=== PATIENT | male | born 1960 | race Caucasian/White ===

== ENCOUNTER 2017-07-19 22:07 | Inpatient (IN) | payer OTHER ==
[~2017-07-19] VITALS: Ht 185.4 cm; Wt 88.4 kg
--- NOTE | 2017-07-19 22:20 | ED.REPORT ---
HPI-Chest Pain 40 and Over Date of Service Jul 19, 2017 ED Provider: Jarad Espinal MD The pt is a 57 y/o male with a hx of [place] x2 (with six stents) and asthma who presents to the ED via EMS complaining of "6/10" left sided chest pain that radiates to his back, onset prior to arrival. He received 2 nitro and 32mg ASA en route and another nitro on arrival. His BP en route was 70/40. He reports tunneled vision prior to the onset of chest pain. Nursing Notes Stated Complaint: HYPOTENSIVE, CHEST PAIN Chief Complaint: Chest Pain Nursing Notes Reviewed: Yes Allergies: Coded Allergies: simvastatin (Verified Allergy, Severe, autoimmune disorder, 07/19/17) cefotetan (Verified Allergy, Mild, rash, hives, 07/19/17) General Time Seen by MD: 22:18 Chief Complaint Chest pain Hx Obtained From: Patient Arrived By: Ambulance Sudden in Onset?: Yes Onset Occurred: Just prior to arrival Symptom Duration: Since onset Location: : Chest left Quality: Painful Radiation: : Back Severity: Current: Pain level 6 out of 10 Severity: Maximum: Severe Recent Healthcare: No recent doctor visit Past Medical History Past Medical History [place] x2 (6 stents) Reports: Asthma Past Surgical History stent placement Smoking History Smoker Current Status UNK, Unknown if Ever Smoker Ambulatory Status Independent Review of Systems Cardiovascular: Reports: Chest pain Musculoskeletal: Reports: Back pain Neurologic: Reports: Vision change Complete sys rev & neg: except as marked. Physical Exam Initial Vital Signs Vital Signs (First) Date Time Temp Pulse Resp B/P Pulse Ox O2 Delivery O2 Flow Rate FiO2 07/19/17 22:30 36.6 69 18 114/80 100 Room Air Initial VS: Reviewed, Vital signs normal Head / Eyes: Atraumatic, Normocephalic Extremities: Vascular intact, Neuro intact, No swelling, No tenderness Skin: Warm, Dry, No cyanosis Neurologic: Alert, Oriented, Nonfocal General/Constitutional: Awake, Alert, Cooperative Distress / Hydration: Positive: Distress mild Respiratory / Chest: Atraumatic, Breath sounds NL, Breath sounds = bilat, No respiratory distress, No rales, No rhonchi, No wheezing Cardiovascular: Heart rate NL, Regular rhythm, Heart sounds NL, No gallop, No murmurs, No rubs Trace bilateral ankle edema Abdomen: Atraumatic, Soft, Non-tender, No guarding, No rebound Neck: Atraumatic, Supple, Full range of motion, No JVD Interpretation & Diagnostics CT angio abd and chest No aortic aneurysm or dissection. Scattered calcified atherosclerosis including 3 vessel coronary artery disease. Signed by Dr. Chasity Gant 07/20/17 00:21 Lab Results Interpretation Result Diagram: 07/19/17 1027 07/19/17 1027 Test 07/19/17 10:27 07/20/17 04:36 White Blood Count 7.0th/mm3 (3.8-10.1) Red Blood Count 4.32mil/mm3 (4.40-5.80) Hemoglobin 13.9g/dL (13.8-17.2) Hematocrit 40.1% (41.0-50.0) Mean Corpuscular Volume 92.8fL (81-100) Mean Corpuscular Hemoglobin 32.2pg (27.0-35.0) Mean Corpuscular Hemoglobin Concent 34.7% (32.0-37.0) Red Cell Distribution Width 12.6% (12.3-15.4) Platelet Count 229bil/L (150-400) Neutrophils (%) (Auto) 61.0% (40-74) Lymphocytes (%) (Auto) 21.7% (14-46) Monocytes (%) (Auto) 13.7% (4-12) Eosinophils (%) (Auto) 3.0% (0-5) Basophils (%) (Auto) 0.3% (0-3) Sodium Level 133mEq/L (134-144) Potassium Level 3.9mEq/L (3.5-5.2) Chloride Level 94mEq/L (97-108) Carbon Dioxide Level 24mmol/L (18-29) Blood Urea Nitrogen 22mg/dL (6-24) Creatinine 0.93mg/dL (0.76-1.27) Estimat Glomerular Filtration Rate 89mL/min (>59) Glucose Level 102mg/dL (60-99) Calcium Level 8.4mg/dL (8.5-10.1) Magnesium Level 1.8mg/dL (1.6-2.6) Total Bilirubin 0.2mg/dL (0.0-1.2) Aspartate Amino Transf (AST/SGOT) 15U/L (0-50) Alanine Aminotransferase (ALT/SGPT) 10U/L (0-44) Alkaline Phosphatase 54U/L (25-150) Total Protein 6.2g/dL (6.4-8.4) Albumin 4.0g/dL (3.4-5.0) Hold Pacheco Top Tube Received (Received) ECG Interpretation ECG Interpretation: Normal sinus rhythm. Rate 71. Time: 22:22 Interpreted by: ED physician Normal ECG Interpretation: Normal ECG w/ rate of... (71), Normal rate, Normal sinus rhythm ECG Interpretation: Normal sinus rhythm. Rate 57. Low voltage, extremity leads Time: 03:58 Interpreted by: ED physician X-Ray Chest Interpretation Chest Xray Interpretation: No acute findings View: Portable Interpretation / Wet Read by: Wet read ED physician Re-Eval/Medical Decision Med Decision/Clinical Course 57-year-old male with a history of coronary artery disease and previous stent placement presents with chest pain. He was treated at home with nitroglycerin. He had a fairly significant hypotensive response. He had taken Viagra earlier yesterday morning. He was hydrated by the paramedics and then the nitroglycerin was repeated with the same hypotensive effect. His troponin and EKG were negative 2 here. He still had intermittent chest pain, relieved with morphine but then it would come back. Because of the chest pain with radiation to the back and the hypotension CT angiogram of the chest and abdomen was performed which was negative for any evidence of great vessel disease. It did show calcification of the coronary arteries and gallstones. He will be admitted to the hospitalist service for troponin trending and further management of his pain. Source of Hx: Old records Time of Eval: 00:34 Patient Status: Condition improved Re-Evaluation/Progress Note: Rechecked pt. Discussed lab results, imaging results, diagnosis and plan to do a repeat troponin. Pt understands and agrees with the plan. All questions addressed. Time of Eval: 01:27 Re-Evaluation/Progress Note: Repeat troponin is negative. Time of Eval: 03:46 Re-Evaluation/Progress Note: Rechecked pt. Discussed lab results, imaging results,diagnosis and plan to admit. Pt understands and agrees with the plan for admission. All questions addressed. Consultation : Referral / Consult Name: Yvan Taylor MD Consulted With: Hospitalist Call Returned at: 04:19 Steam Distribution Supervisor: Will see patient, Agrees with eval, Agrees with plan, Accepts admit Counseled Regarding: Diagnosis, Lab results, Need for admission Discharge & Departure Primary Impression: Chest pain Chest pain type: unspecified Qualified Code: R07.9 - Chest pain, unspecified Disposition: ADMITTED TO HOSPITAL Referrals: OTHER,PHYSICIAN Scribe Attestation Portions of this note were transcribed by Elly Shah. I,, personally performed the history,physical exam and medical decision-making;I reviewed and confirmed the accuracy of the information in the transcribed note. Signed by Skyla Elena. 07/19/17 Jarad Espinal MD Jul 19, 2017 22:20 Elly Shah Jul 19, 2017 22:27
[2017-07-19 22:30] VITALS: BP 114/80; PULSE 69; RESP 18; O2SAT 100
[2017-07-19 22:54] LABS: BASOPHILS % (AUTO) 0.3 % (0-3); MONOCYTES % (AUTO) 13.7 % (4-12); Mean Corpuscular Hemoglobin 32.2 pg (27.0-35.0); Mean Corpuscular Volume 92.8 fL (81-100); Platelet Count 229 bil/L (150-400)
[2017-07-19 22:59] VITALS: BP 117/71; PULSE 71; RESP 13; O2SAT 98
[2017-07-19 23:26] LABS: Magnesium 1.8 mg/dL (1.6-2.6); TROPONIN T 0.01 ug/L (0.0-0.011)
[2017-07-19 23:41] VITALS: BP 119/71; PULSE 72; RESP 15; O2SAT 84
[2017-07-20] VITALS (8 sets, daily range): BP systolic 90–117; BP diastolic 43–69; PULSE 45–59; RESP 11–18; O2SAT 92–98
[2017-07-20] MEDS ORDERED: Alum-Mag Hydrox-Simeth 30 mL Suspension PO PRN (04:40)
[2017-07-20] MEDS ORDERED: Ondansetron 2 mg/mL 2 mL Inj IVPUSH PRN (04:40)
[2017-07-20] MEDS ORDERED: Atropine 1 mg/10 mL (Code) Syringe IVPUSH PRN (04:40)
[2017-07-20] MEDS ORDERED: Polyethylene Glycol (PEG) 17 Gm Powder PO PRN (04:40)
[2017-07-20] MEDS ORDERED: Senna-Docusate 8.6-50 mg Tablet PO PRN (04:40)
[2017-07-20 05:58] LABS: Creatine Kinase 225 U/L (21-232)
[2017-07-20] MEDS: 0.9% Sodium Chloride 1,000 ML IV SCH ×2 (06:05→17:06)
[2017-07-20] MEDS ORDERED: AMPH30CA PO (06:28)
[2017-07-20] MEDS ORDERED: LORA-302 PO (06:28)
[2017-07-20] MEDS ORDERED: ALBU8.5H2 INH (06:28)
[2017-07-20] MEDS ORDERED: FUR20 PO (06:28)
[2017-07-20] MEDS ORDERED: LISI-567 PO (06:28)
[2017-07-20] MEDS ORDERED: RISP1TAB3 PO (06:28)
[2017-07-20] MEDS ORDERED: ADV250INH INH (06:28)
[2017-07-20] MEDS ORDERED: ATOR20TA65 PO (06:28)
[2017-07-20] MEDS ORDERED: GABA-502 PO (06:28)
[2017-07-20] MEDS ORDERED: TEST75GE3 (06:28)
[2017-07-20] MEDS ORDERED: NITR0.4T38 (06:28)
[2017-07-20] MEDS ORDERED: BUPR300T52 PO (06:28)
[2017-07-20] MEDS ORDERED: WARF5TAB PO (06:28)
[2017-07-20] MEDS ORDERED: OXYC10TA8 PO (06:28)
[2017-07-20] MEDS: Heparin Protocol Boluses IVPUSH PRN ×3 (06:41→18:38)
[2017-07-20] MEDS: Heparin 25K Unit/500mL 0.45 NS 25,000 UNIT in IV Premix 1 EACH IV SCH (06:42)
[2017-07-20 07:26] LABS: INR 1.49 ratio
[2017-07-20] MEDS: Sodium Chloride LOK Flush 10 mL Syringe IVFLUSH SCH ×3 (07:38→20:48)
--- NOTE | 2017-07-20 09:29 | DRSVH ---
PROCEDURE: CT ANG CHEST/ABD W/WO CONTRAST ([id number]) INDICATIONS: chest pain, hypotension TECHNIQUE: Precontrast 5 mm thick sections acquired from the lung apices to the iliac crests. After the adminis tration of intravenous contrast, 3 mm thick sections again acquired from the lung apices to the iliac crests. 3-dimensional maximum intensity projection (MIP) oblique sagittal and coronal reformats wer e then acquired, and/or 3-dimensional volume rendering reformats. For radiation dose reduction, the following was used: automated exposure control. COMPARISON: None. FINDINGS: Image quality: Excellent. AORTA: Intramural hematoma: Absent. Maximum hematoma thickness: Not applicable.. Focal contrast enhancement: Intramural blood pool (< 2 mm neck or imperceptible communication with aortic lumen): Absent.. Ulcer-like projection (broad communication with aortic lumen > 3 mm): Absent. Dissection: Absent. [place] classification: Absent. Maximum aortic diameter: 4.3 cm. [If [place] A dissection, > 5.0 cm has a poorer prognosis. If [place] B dissection, > 4.0 cm has a poorer prognosis.] Periaortic hematoma: Absent. CHEST: Lungs and pleura: No acute airspace opacities. 3.3 mm right upper lobe subpleural nodule is noted. N o pleural effusions or pneumothorax. Central and peripheral airways are patent and normal in caliber . Mediastinum: Heart size is normal. No pericardial effusion. Atherosclerotic calcifications are note d in the aorta, great vessels and the coronary vasculature. No mediastinal or hilar adenopathy by si ze criteria. Central pulmonary arteries are normal in size. Esophagus is normal in caliber. Small h iatal hernia noted. Bones and chest wall: No axillary adenopathy by size criteria. Thyroid gland is within normal limit s. No suspicious bony lesions. No vertebral body compression fractures. ABDOMEN: Vasculature: Celiac trunk and mesenteric arteries are patent. Renal arteries are also patent. Scatt ered atherosclerotic calcifications involving the abdominal and pelvic vasculature. Solid organs: Liver and spleen are normal in size. Small hypoattenuating lesion noted in segment 6 o f the right hepatic lobe may represent small cyst or hemangioma, however lesion is too small to defin itively characterize. Punctate calcification noted in the spleen compatible sequela prior granulomato us disease. Gallbladder is within normal limits. Biliary system is non dilated. Pancreas enhances n ormally. No adrenal nodules. Both kidneys are normal in size and enhancement, without hydronephrosi s. Peritoneum and bowel: No free fluid or air. Bowel loops are normal in caliber and wall thickness. Nodes and vessels: No retroperitoneal or mesenteric adenopathy by size criteria. Inferior vena cava is normal in morphology. Bones: No suspicious bony lesions. No vertebral body compression fractures. Spine degenerative disc disease and facet arthropathy. Miscellaneous: No ventral hernias. IMPRESSION: 1. No evidence of aortic dissection or aortic aneurysm. 2. Atherosclerosis including 3 vessel coronary artery disease. 3. Small hiatal hernia. Dictated by: Loenela Díaz MD, PhD on 07/20/2017 at 9:19 Approved by: Leonela Díaz MD, PhD on 07/20/2017 at 9:27
--- NOTE | 2017-07-20 10:16 | NUR ---
Off unit: Pt off unit for stress test at 0915. cleared pt to be off unit without monitoring or CCU nurse accompanying. VSS, tele SB/SR 40s-60s, RA O2 sats 98%.
--- NOTE | 2017-07-20 11:13 | DRSVH ---
PROCEDURE: X-RAY CHEST ONE VIEW, PORTABLE ([id number]) INDICATIONS: CHEST PAIN TECHNIQUE: One view of the chest was acquired. COMPARISON: None. FINDINGS: Surgical changes and devices: None. Lungs and pleura: No pleural effusions or pneumothorax. Lungs are clear, aside from minimal bibasil ar airspace opacity. Mediastinum: Mediastinal contours appear normal. Heart size is normal. Bones and chest wall: No suspicious bony lesions. Overlying soft tissues appear unremarkable. IMPRESSION: Bibasilar atelectasis versus aspiration or pneumonia. Correlate clinically. Dictated by: Vijay Emmanuel [facility] Interpreted: Leonela Díaz MD on 07/20/2017 at 8:38 Approved by: Leonela Díaz MD, PhD on 07/20/2017 at 11:10
[2017-07-20] MEDS ORDERED: WARF10TA4 PO (12:28)
--- NOTE | 2017-07-20 14:48 | DRSVH ---
Formerly [facility] [address] [place] [address] Echocardiogram Report Name: SHARON FELTON EStudy Date: 07/20/2017 Height: 73 in Hospital Exam Location: [facility] Weight: 201 lb Gender: Male BSA: 2.2 m2 : 1960 Age: 57 yrs BP: 73/201 mmHg Reason For Study: Chest pain, History: CAD, [place] x 2 Ordering Physician: Performed By: Joey Ortiz Referring Physician: SEYMOUR SULLIVAN Interpretation Summary 1) Normal left ventricular thickness, size, wall motion, and systolic function (EF 55-60%). 2) Normal right ventricular size and function. 3) No significant valvular abnormalities. 4) The aortic root is moderately dilated (diameter 4.7cm) and the ascending aorta is mildly enlarged (diameter 4.2cm). Consider repeat Echo in 6-12 months for serial monitoring. 5) No prior Echo available for comparison. Procedure: A two-dimensional transthoracic echocardiogram with color flow and Doppler was performed. The study quality was technically good. There is no prior echocardiogram noted for this patient. The patient was in sinus bradycardia with heart rates between 44-57 bpm during the exam. Left Ventricle: The left ventricle is normal in size. There is normal left ventricular wall thickness. The ejection fraction is estimated to be 55-60%. Left ventricular systolic function is normal without focal wall motion abnormalities. Assessment of diastolic parameters indicates a relaxation abnormality of the left ventricle, consistent with normal filling pressures. Right Ventricle: The right ventricle is normal in size and function. Atria: There is mild biatrial enlargement. The interatrial septum is intact with no evidence for an atrial septal defect. Mitral Valve: The mitral valve leaflets appear mildly thickened, but open well. There is mild mitral regurgitation. Aortic Valve: The aortic valve is normal in structure and function. There is no aortic valve stenosis. There is trace aortic regurgitation. Tricuspid Valve: The tricuspid valve is normal. There is mild tricuspid regurgitation. The right ventricular systolic pressure is estimated at 26 mmHg assuming a right atrial pressure of 3 mm Hg. Pulmonic Valve: The pulmonic valve leaflets are thin and pliable; valve motion is normal. There is mild pulmonic regurgitation. Great Vessels: The aortic root is moderately dilated. The ascending aorta is mildly enlarged. The pulmonary artery is normal size. The IVC is of normal diameter and collapses greater than 50% with a sniff. This suggests a low right atrial pressure of 3 mm Hg. Pericardium/ Pleura There is no pericardial effusion. There is no pleural effusion. MMode/2D Measurements & Calculations LVIDd: 5.6 cm LVIDs: 4.2 cm LA A2 area: 25.1 cm FS: 24.8 % LA A4 area: 25.2 cm EPSS: 0.99 cm LA length (vol): 6.6 cm IVSd: 0.95 cm LA vol: 81.5 ml LVPWd: 0.83 cm LA vol index: 37.8 ml/m2 RA long axis: 4.7 cm LVOT diam: 2.7 cm RA area: 20.1 cm AoV Openin.0 cm RA vol: 72.8 ml Ao root diam: 4.7 cm RA : 33.8 ml/m2 asc Aorta Diam: 4.2 cm Ao Arch Diam (Prox Trans): 3.2 cm EDV(MOD-sp2): 152.2 ml LV santoyo. diameter/BSA (cm/m^2): 2.6 ESV(MOD-sp2): 59.9 ml EF(MOD-sp2): 60.6 % LV sys. diameter/BSA (cm/m^2): 1.9 RVD1 (basal): 4.4 cm TAPSE: 2.3 cm Doppler Measurements & Calculations Ao V2 max: 104.8 cm/sec MV E max tristen: 84.0 cm/sec Ao max P.4 mmHg MV A max tristen: 64.0 cm/sec Ao mean P.4 mmHg LVOT Max Tristen: 81.3 cm/sec VERONICA(I,D): 4.7 cm sev ratio: 0.80 MV E/A: 1.3 TR max tristen: 237.3 cm/sec TR max P.5 mmHg MV dec time: 0.22 sec Ao V2 mean: 73.0 cm/sec Ao V2 VTI: 24.2 cm VERONICA(V,D): 4.5 cm2 LV V1 max P.6 mmHg VERONICA indexed to BSA (cm^2/m^2): 2.2 LV V1 VTI: 19.3 cm Reading Physician:02:47 PM
[2017-07-20 15:13] LABS: Creatine Kinase 217 U/L (21-232)
[2017-07-20 15:15] LABS: TROPONIN T < 0.010 ug/L (0.0-0.011)
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
--- NOTE | 2017-07-20 15:54 | NUR ---
Social Work: Initial Assessment Data: See initial assessment. Patient is a 57 year old male who was admitted on 07/20/2017 for chest pain. Patient is uninsured and his PCP is Dr. Kalin Carter. EMR reviewed. SW met with patient and to complete assessment for discharge planning. Patient informed SW that he and his live with sister-in law in [place]. Patient considers his to be his main source of support. Patient denies having a DPOA but confirms that AD have been completed on his behalf. Patient confirms that he is I at baseline with all ADLs and care needs. Patient confirms that he drives and is able to provide his own care needs. Patient denies a hx of home health services or SNF. Patient denies having terminologist care insurance or VA benefits. Upon discharge, patient states that his will transport him home. SW provided patient with a discharge planning checklist booklet and encouraged to call with any questions or concerns. Phone number provided. 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 Patient also stated that he lost his home. SW provided patient with a [employer] application and encouraged him to complete it for assistance. SW will continue to follow for needs. Assessment: Patient is from home with family. Patient is I at baseline. Upon discharge, patient will likely have no needs. Plan: Patient will discharge home with . Transportation will be provided by spouse. SW will continue to follow for needs. ABENA Marie Addendum: 07/20/17 at 1605 by TYRONE STERLING Amended: Links added.
[2017-07-20] MEDS: Gentamicin 0.3% 5 mL Ophthalmic Solution BOTH_EYES SCH ×2 (16:49→19:58)
[2017-07-20] MEDS ORDERED: Non-Formulary Medication (Warfarin Sodium 10 MG) PO SCH (17:15)
--- NOTE | 2017-07-20 17:57 | DRSVH ---
PROCEDURE: ONE DAY PHARMACOLOGICAL STRESS TEST. Rest and pharmacological stress myocardial perfusio n SPECT with gated imaging and ejection fraction RADIOPHARMACEUTICAL: 9.2 mCi of Tc-99m tetrofosmin IV at rest and 25.9 mCi of Tc-99m tetrofosmin IV at peak effect of pharmacological stress. A [id number]-siesuxrz was performed. INDICATIONS: CHEST PAIN. TECHNIQUE: Radiopharmaceutical was injected at peak stress test and also at rest. SPECT images were obtained. SPECT myocardial perfusion images were displayed in short axis, horizontal long axis, and vertical long axis views. Gated images were reviewed using Minded software. COMPARISON: None. CARDIAC STRESS: Initially the patient attempted an exercise perfusion study. He walked on the Jeremiah protocol for about 7 minutes and 5 seconds, however, he was able to achieve only 58% of the target h eart rate with a maximum heart rate of 95. There was flat blood pressure response, in fact, it initi ally decreased. Baseline blood pressure was 128/88 and during it dropped to 108/70. There were no o bvious ischemic changes. The exercise stress test was converted to a pharmacological perfusion stres s test. A pharmacologic stress test was performed under the supervision of the attending staff using an infus ion of Lexiscan as per protocol. The patient had baseline lightheadedness and throat pain, which inc reased slightly during exercise and Lexiscan. The patient also had nausea and dyspnea with Lexiscan. Hemodynamic Data: As stated above. Symptoms: As stated above. Aminophylline: 100 mg of IV aminophylline was given. EKG: There were no obvious ischemia EKG changes. There were no significant sustained arrhythmias. FINDINGS: Raw Data: There was increased subdiaphragmatic activity. The patient's weight is 201 pounds. Left Ventricular Function: The stress LV ejection fraction was 51% and resting LV ejection fraction was 46%. Resting LV end diastolic volume was 161 mL, suggestive of dilated left ventricle. On my vi sual inspection, there was no transient ischemic dilatation, no obvious focal wall motion abnormaliti es on stress images. Myocardial Perfusion: Stress supine, resting supine and stress prone images were compared to each ot her. It appears the patient has small-size, severely-decreased perfusion of the inferoapex without a ny significant reversible ischemia. IMPRESSION: 1. This is an abnormal myocardial perfusion study with evidence of a small-size infarction of the in feroapex without any reversible ischemia. 2. There is evidence of chronotropic incompetency. During exercise, the patient walked for about 7 minutes and 5 seconds on Jeremiah protocol, however, was only able to achieve 58% of target heart rate. As per his medication list, he is not on beta-blockers or calcium channel blockers. His blood press ure dropped during exercise. There were no obvious ischemic changes at that workload. There was no obvious ischemia seen on the perfusion scan. We will recommend cardiology evaluation for possible si ck sinus syndrome/ Chronotropic incompetence and further evaluation. I discussed the findings with nettie hospitalist team. Dictated by: Pool Clements M.D. on 07/20/2017 at 15:06 Transcribed by: LAKISHA on 07/20/2017 at 20:56 Approved by: Pool Clements M.D. on 07/21/2017 at 17:09
--- NOTE | 2017-07-20 18:43 | NUR ---
Shift: Off unit for approx 4 hours for stress test, see report in chart. Tele SB 40s-60s, VSS, RA O2 sats 98%. Tolerating PO intake, voiding adequately, x large BM this shift, guaiac sent. Up with SBA, at bedside helping with personal care. Pt/spouse concerned about pt's home meds not being restarted, MD notified. Care ongoing.
[2017-07-20] MEDS: risperiDONE 1 mg Tablet PO SCH (19:53)
[2017-07-20] MEDS: Fluticasone-Salmererol 250-50 Inhaler INHALATION SCH (19:53)
--- NOTE | 2017-07-20 19:59 | PCM.CONPHA ---
Assessment/Plan Assessment/Plan ANTICOAGULATION MANAGEMENT BY PHARMACY -INDICATION: Factor V Leiden mutation -HOME DOSE: 7.5 MG MON/MON/MON 10 MG MON//MON/SUN -CONCURRENT ANTICOAGULATION: Heparin gtt -COAG TRENDS: Date INR 1.49 PLAN: Will continue home dose with heparin gtt and follow INR trends. Pharmacy appreciates consult and will continue to monitor. THANKS! Holli Nieves PharmD Jul 20, 2017 19:59
[2017-07-20] MEDS ORDERED: Albuterol 2.5 mg/3 mL Inhalation Solution NEB PRN (20:00)
[2017-07-20] MEDS: LORazepam 0.5 mg Tablet PO PRN (20:47)
[2017-07-21] VITALS (15 sets, daily range): BP systolic 104–161; BP diastolic 53–93; PULSE 40–64; RESP 10–20; O2SAT 97–99
--- NOTE | 2017-07-21 03:56 | NUR ---
chest pain 0700 pt c/o chest pain 5/10 and given 2mg morphine. Pt c/o SOB associated with chest pain. Pt given inhaler and MD called to order home med PO ativan. No more c/o chest pain. Pt SBP in 90s-110 and HR 40s while sleeping. Will continue to monitor.
[2017-07-21] MEDS: Heparin 25K Unit/500mL 0.45 NS 25,000 UNIT in IV Premix 1 EACH IV SCH (05:22)
[2017-07-21] MEDS: Gentamicin 0.3% 5 mL Ophthalmic Solution BOTH_EYES SCH ×4 (06:12→20:26)
[2017-07-21] MEDS: 0.9% Sodium Chloride 1,000 ML IV SCH ×2 (06:12→16:13)
[2017-07-21] MEDS: Sodium Chloride LOK Flush 10 mL Syringe IVFLUSH SCH ×2 (07:28→16:13)
[2017-07-21 07:31] LABS: BASOPHILS % (AUTO) 0.5 % (0-3); EOSINOPHILS % (AUTO) 4.9 % (0-5); MONOCYTES % (AUTO) 13.3 % (4-12); Mean Corpuscular Hemoglobin 32.9 pg (27.0-35.0); Mean Corpuscular Volume 91.8 fL (81-100); NEUTROPHILS % (AUTO) 50.7 % (40-74); Platelet Count 211 bil/L (150-400)
[2017-07-21] MEDS: Fluticasone-Salmererol 250-50 Inhaler INHALATION SCH ×2 (07:49→20:26)
[2017-07-21] MEDS: risperiDONE 1 mg Tablet PO SCH ×2 (07:50→20:23)
[2017-07-21] MEDS: LORazepam 0.5 mg Tablet PO PRN ×2 (07:50→15:29)
[2017-07-21] MEDS: buPROPion XL 300 mg ER24 Tablet PO SCH (07:50)
[2017-07-21 08:13] LABS: INR 1.5 ratio
--- NOTE | 2017-07-21 10:29 | PCM.PHAPRO ---
Progress Date of Service: Jul 21, 2017 Anticoagulation Date Jul 21-Jul INR 1.49 1.5 INR change 0.01 Warf Dose 10 MG 7.5 MG Campbell Arroyo Jul 21, 2017 10:29
--- NOTE | 2017-07-21 12:48 | PCM.PNMED ---
Subjective Date of Service Jul 21, 2017 Subjective Subjective: Patient reports feeling relatively well, states that he continues to have pain in his shoulders, we discussed using home medication versus morphine which is currently available to him. Patient states that he prefers morphine, we will continue with this management. however patient also takes Ativan for anxiety home, will continue to monitor his anxiety if this becomes acute current Ativan dosage may be increased, however we will hold off on this at least until patient returns from cath procedure. Events Overnight: No acute events overnight. ROS: Denies fever/chills, nausea/vomiting, headache, weakness, abdominal pain, chest pain, shortness of breath, increased swelling in hands or feet. Exam Vital Signs Vital Sign - Last Date Time Temp Pulse Resp B/P Pulse Ox O2 Delivery O2 Flow Rate FiO2 07/21/17 12:05 36.4 46 20 129/69 99 Room Air Intake and Output 07/20/17 07/20/17 07/21/17 Cumulative From/Thru 15:00 23:00 07:00 07/19/17 22:30 - 07/21/17 06:14 Intake Total 1530 ml 1710 ml 3240 ml Output Total 2800 ml 1200 ml 5300 ml Balance -1270 ml 510 ml -2060 ml Intake Oral 480 ml 400 ml 880 ml IV Total 1050 ml 1310 ml 2360 ml Output Urine Total 2800 ml 1200 ml 5300 ml Other 0 ml # Voids 1 2 # Bowel Movements 1 0 1 Exam General: No acute distress, well-developed, well-nourished Head: Normocephalic, atraumatic. External ears without defect. Eyes: Pupils equal, round, and reactive to light and accommodation. Anicteric sclerae, moist conjunctivae. Neck: Normal range of motion, no lymphadenopathy noted Cardiovascular: Regular rate and rhythm with no murmurs, rubs, or gallops appreciated Pulmonary: Clear to auscultation bilaterally with no crackles, wheezes, or rhonchi. Normal respiratory effort with no use of accessory muscles. Abdomen: Bowel tones present. Soft, nontender, nondistended. Extremities: No clubbing, cyanosis, trace edema of the lower legs bilaterally edema Skin: Normal temperature, turgor, and texture; no rash, ulcers, or subcutaneous nodules appreciated. Neurological: Cranial nerves grossly intact. Reflexes, coordination, and sensory function within normal limits. Normal muscle strength, tone, and bulk. Psychiatric: Normal mood and affect. Alert and oriented to person, place, and time IVs and Medications Medications Reviewed: Medications were reviewed in detail Lab and Diagnostics Result Diagram: 07/21/1745 07/21/1745 X-Rays, CTs and MRIs X-RAY CHEST ONE VIEW, PORTABLE IMPRESSION: Bibasilar atelectasis versus aspiration or pneumonia. Correlate clinically. Dictated by: Vijay Emmanuel RRA Interpreted: Leonela Díaz MD on 07/20/2017 at 8:38 Approved by: Leonela Díaz MD, PhD on 07/20/2017 at 11:10 CT ANG CHEST/ABD W/WO CONTRAST IMPRESSION: 1. No evidence of aortic dissection or aortic aneurysm. 2. Atherosclerosis including 3 vessel coronary artery disease. 3. Small hiatal hernia. Dictated by: Leonela Díaz MD, PhD on 07/20/2017 at 9:19 Approved by: Leonela Díaz MD, PhD on 07/20/2017 at 9:27 Cardiac Echo Impressions Echocardiogram Interpretation Summary 1) Normal left ventricular thickness, size, wall motion, and systolic function (EF 55-60%). 2) Normal right ventricular size and function. 3) No significant valvular abnormalities. 4) The aortic root is moderately dilated (diameter 4.7cm) and the ascending aorta is mildly enlarged (diameter 4.2cm). Consider repeat Echo in 6-12 months for serial monitoring. 5) No prior Echo available for comparison. Reading Physician:02:47 PM Additional Diagnostics ONE DAY PHARMACOLOGICAL STRESS TEST IMPRESSION: 1. This is an abnormal myocardial perfusion study with evidence of a small- size infarction of the inferoapex without any reversible ischemia. 2. There is evidence of chronotropic incompetency. During exercise, the patient walked for about 7 minutes and 5 seconds on Jeremiah protocol, however, was only able to achieve 58% of target heart rate. As per his medication list, he is not on beta-blockers or calcium channel blockers. His blood pressure dropped during exercise. There were no obvious ischemic changes at that workload. There was no obvious ischemia seen on the perfusion scan. We will recommend cardiology evaluation for possible sick sinus syndrome and further evaluation. I discussed the findings with the hospitalist team. Dictated by: Pool Clements M.D. on 07/20/2017 at 15:06 Transcribed by: LAKISHA on 07/20/2017 at 20:56 Assessment & Plan 57-year-old male with past medical history of asthma, GERD, factor V Leiden mutation, previous OH with 6 stents placed over the period of 3-4 months back in 2003, presents with left-sided chest pain which radiates to the back. Unstable angina, present on arrival, active Patient complaining of left-sided chest pain which she describes as similar to his previous episodes Patient has a history of OH with stent placement in 2003, 2011 (total of 6 stents placed) - Serial troponins negative - Echo results as above - Stress test results inconclusive, see above - Continue heparin drip - Continue aspirin - Continue morphine as needed for pain - Cardiology consulted, cath scheduled for 07/21 Acute Hypotension, present on arrival, active Patient received 1 L of fluid in the emergency department, pressures remaining low but stable at this time. - Continue fluids as needed - Hold nitroglycerin - Hold home antihypertensive medications Acute bradycardia, present on arrival, active - Atropine as needed for acute bradycardia - Telemetry History of factor V Leiden mutation, on warfarin - Currently anticoagulated with heparin drip - INR 1.5 on arrival - Continue Warfarin dosing per pharmacy History of asthma - Continue home asthma medications History of hypogonadism - Hold testosterone History of chronic pain - Continue morphine as needed for pain control - Hold home oxycodone History of anxiety/depression - Continue home medications for anxiety and depression History of hyperlipidemia - Continue atorvastatin History of hypertension - Hold home lisinopril, furosemide Disposition: Patient will likely require 1-3 more days of inpatient monitoring prior to discharge home. VTE Prophylaxis: Other (heparin drip) VTE Mechanical Devices: Intermittant Pneumatic CD Resuscitation Status: CPR: Attempt Resuscitation Attending Statement The patient was seen and examined together with Dr. Bolaños on 07/21/2017 and I agree with the history, exam and plan as outlined in the note above. . Tyree Bolaños DO Jul 21, 2017 12:48 Campbell Vargas MD Jul 22, 2017 07:37
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
[2017-07-21] MEDS ORDERED: Heparin 10,000 Unit/1,000 mL NS Premix IV ONE ×2 (16:02→17:17)
[2017-07-21] MEDS ORDERED: Heparin 1,000 Units/500 mL NS Premix IV ONE ×2 (16:02→17:19)
[2017-07-21] MEDS ORDERED: Heparin 1,000 Unit/mL 10 mL Inj ONE (16:02)
[2017-07-21] MEDS ORDERED: Nitroglycerin 50,000 mcg/250 mL D5W Premix IV ONE (16:07)
[2017-07-21] MEDS ORDERED: fentaNYL-PF 50 mCg/mL 2 mL Inj ONE (16:22)
[2017-07-21] MEDS ORDERED: 0.9% Sodium Chloride 250 ML ONE (17:08)
[2017-07-21] MEDS ORDERED: Adenosine 3 mg/mL 2 mL Inj ONE (17:08)
[2017-07-21] MEDS ORDERED: Adenosine Inj 20 ML IV ONE (17:10)
[2017-07-21] MEDS ORDERED: 0.9% Sodium Chloride 50 ML ONE (17:10)
--- NOTE | 2017-07-21 17:37 | NUR ---
Cardiac Catheter Lab 729 - Spoke to Dr. Bolaños about the patient's shoulder pain and the possibility of ordering his home Oxycodone. Dr. Bolaños spoke to the patient and decided he just wanted him to keep receiving the IV morphine for his pain. 939 - Discussed his care with Dr. Vargas, Dr. Oliver, and the rest of the multidisciplinary care team during morning rounds. 114 - He requested to receive Ativan more frequently than the scheduled [address] Bolaños who said that since he is getting so much Morphine he did not want to give him Ativan more frequently. Informed the patient of this. 152 - Danyell from the labourers called and said that the labourers team would be coming in the next half hour. Ensured that the consent was signed, he had removed any jewelry, and two IVs were intact and patent. 1609 - He left for the labourers. Telemetry removed, Audit Manager notified. 1802 - Called [facility] to give report, but was told the patient had just arrived there from the labourers and that his nurse was busy. They said the nurse would call back. Care continues. Addendum: 07/21/17 at 1832 by SAV REYES RN 1819 - Elvin ROMERO from [facility] called and said he received the information he needed on the patient. Care continues.
--- NOTE | 2017-07-21 20:01 | NUR ---
Pt transferred to PCC room 2011, VSS. Rt groin site continues to ooze, small hematoma marked after dressing change, pt seen by Dr. Lilly after hematoma discovered. Pt report and handoff given to Linda ROMERO.
--- NOTE | 2017-07-21 20:14 | CS94 ---
[address] [address] DIAGNOSTIC CARDIAC CATHETERIZATION PATIENT: SHARON FELTON : 1960 MR#: [id number] ADMIT: 07/20/2017 JOB ID: [id number] PROCEDURE NOTE -- CARDIAC CATHETERIZATION LABORATORY: SERVICE DATE: Friday, July 21, 2017 [employer]IVERSITY RELATIONS VICE PRESIDENT: Bhupinder Lilly MD PROCEDURES: 1. Coronary angiogram--urgent. 2. Left heart catheterization (LHC)--pressure measurement. 3. Percutaneous coronary intervention (PCI)--diagnostic: a. FFR (fractional flow reserve; pressure wire)--mid RCA. CLINICAL DETAILS: This 57-year-old man with known coronary disease and prior PCI of mid and distal RCA, was admitted to the hospital with atypical symptoms including symptoms said to be similar to his prior acute presentation with coronary disease in the early 1999s. His symptoms included visual changes and resting chest discomfort and severe hypotension with self-reported systolic blood pressure of 50 and other blood pressures as low as 70. He also has sinus bradycardia with heart rates in the mid to high 40 bpm. The current hypotension also occurred in the setting of NTG and recent Viagra use. ECG is unremarkable and not outside normal limits. Serial troponins are negative. A treadmill stress test showed good effort tolerance but submaximal heart rate on no beta-blockers (chronotropic incompetence). The test was completed as a regular adenosine myocardial perfusion scan that is reported to show normal LV function and no ischemia; but a possible fixed inferoapical defect (versus apical thinning). Echocardiogram shows borderline low ejection fraction without wall motion defects. He has a history of known prior coronary disease with a history of extensive stenting of the RCA on several occasions in the early 1999s. The last cath was in 2011 at [place], [place] and said to be unremarkable. The last noninvasive cardiac evaluation was in 2014 and said to be unremarkable. No other details of his prior coronary disease or treatment are available. PROCEDURAL DETAILS: He was seen by Cardiology consultation. Cardiac catheterization was recommended in the setting of an atypical scenario and concern for severe hypotension in order to rule out possible critical or severe coronary disease. I spoke with him and his prior to the procedure to discuss the recommendation for coronary angiogram for definitive diagnosis; and to guide treatment options including medical therapy or PCI or coronary bypass surgery if needed. We discussed the procedure including possible risks and complications. We discussed bleeding, infection, and blood clot; as well as injury to nerve, artery, vein or kidney; and also arrhythmia, drug reaction; or others. We discussed treatment as needed including surgery, pacemaker, or transfusion. We discussed more serious complications that are possible including stroke, heart attack, cardiac arrest, and emergency surgery including transfer for coronary bypass surgery. We discussed stents including the critical need for mandatory prolonged dual antiplatelet therapy; and the possibility of additional coronary interventions needed. After questions and discussion, he signed informed consent to proceed. He was brought to the catheterization laboratory NPO where he was prepped sterilely and draped. Prior to the procedure he had received ASA and prior heparin had been discontinued; and a single dose of Plavix 75 mg p.o. CORONARY ANGIOGRAM: Arterial access was obtained without difficulty in the right common femoral artery using fluoroscopic localization over the femoral head; with lidocaine local anesthesia; and modified Seldinger technique to insert a 10 cm, 6-Finnish side-arm sheath. Catheters are advanced and exchanged over a long 0.035 inch J tipped guidewire. For coronary angiography, left coronary artery was engaged well with a 6-Finnish JL-5 catheter (note moderately enlarged aortic root 43-47 mm by echo and CT that had been done to rule out aortic dissection). RCA was engaged easily with a 6-Finnish JR-4 catheter. LHC: At the end of the procedure, a 6-Finnish pigtail catheter was advanced across the aortic valve into the left ventricle to measure LVED and pullback. No LV angiogram done. PERCUTANEOUS CORONARY Intervention (PCI)--diagnostic intervention with pressure wire FFR of mid RCA: The diagnostic images were reviewed and discussed including with Cardiology (Dr. Jimenez). Decision was made to proceed with fractional flow reserve (FFR) of the tubular mid RCA 70% to 80% lesion. Procedural anticoagulation was obtained with bolus IV heparin to achieve therapeutic ACT. For the intervention, the RCA was engaged with a 6-Finnish JR-4 guide catheter. A Tray pressure wire was prepared with zero outside the body and equilibration in the ostial RCA. NTG 225 mg IC was given. Adenosine continuous IV infusion was used and tolerated well. Without adenosine, FFR was 0.97. IFR was 0.95 ("defer" range). With adenosine, the lowest FFR was 0.85 ("defer" range). Completion angiograms show intact RCA. Procedure without difficulty. Patient tolerated procedure well. No complication. A side-arm sheath angiogram shows adequate access for a closure device; and arterial hemostasis was obtained without difficulty using a 6-Finnish StarClose clip. The patient is transferred from the catheterization lab clinically stable and chest pain free to the [facility] unit for ongoing care including by the primary hospitalist team. I discussed the procedure, findings, and management considerations with the patient and his ; with Cardiology (Dr. Jimenez); and with the hospitalist team (Dr. Munoz). FINDINGS: 1. LMCA: Intact. The left main coronary artery is a large long vessel with mild atherosclerotic plaquing. 2. LAD: Intact except for moderate atherosclerotic plaquing proximally (50% narrowing). The left anterior descending coronary artery is a moderate to large size transapical vessel with two substantial proximal diagonals from the region of moderate plaquing and calcification. 3. LCX: Intact with mild to moderate atherosclerotic plaquing. The left circumflex coronary artery distribution consists of a moderate to large size high OM. 4. RCA: 70% to 80% tubular mid RCA lesion. The right coronary artery is a large dominant vessel with heavy aortic plaquing superior to the heavy aortic calcific plaquing superior to the RCA ostium. The proximal RCA has diffuse intermediate narrowing of about 50%. The mid RCA in the region of calcification. The mid RCA has a tubular lesion that is angiographically significant--70% to 80% narrowed (including after NTG IC). There is a long stented segment from just before the acute margin to the distal RCA before the crux, there is moderate diffuse atherosclerotic plaquing but overall the stented segment looks widely patent. RPDA and RPLV are small. 5. FFR: FFR of 0.85 and iFR of 0.95 indicate the mid RCA lesion is not physiologically severe. 6. LHC: LVED 23 mmHg; and no systolic gradient on pullback across the aortic valve. CONCLUSION: 1. FFR of mid RCA lesion: Not severe. 2. Coronary artery disease (CAD)--single vessel CAD including angiographically significant 70% to 80% tubular mid RCA lesion; and an intact long stented segment of mid and distal RCA; as well as LCA plaquing including proximal LAD. 3. Elevated LVED. RECOMMENDATIONS: 1. Comment: Catheterization was carried out to exclude the possibility of severe coronary disease given his atypical but worrisome clinical presentation even in the absence of other overt objective evidence of ischemia. The stents are intact from prior and the lesion of interest found is a mid RCA lesion. This lesion is angiographically significant but is not ischemia producing by FFR. Intervention is deferred. 2. Recommend ongoing evaluation for his hypotension, chronotropic incompetence; and other possible causes of his symptoms. 3. OMT--optimal guideline directed medical therapy for underlying CAD risk factors and for his underlying CAD.
[2017-07-21] MEDS ORDERED: 0.9% Sodium Chloride 1,000 ML IV ONE (20:15)
[2017-07-21] MEDS ORDERED: Atropine 1 mg/10 mL (Code) Syringe IVPUSH PRN (20:15)
[2017-07-21] MEDS ORDERED: 0.9% Sodium Chloride 250 ML BOLUS IV PRN (20:15)
[2017-07-21] MEDS ORDERED: Sodium Chloride LOK Flush 10 mL Syringe IVFLUSH PRN (20:15)
[2017-07-21] MEDS ORDERED: Ondansetron 2 mg/mL 2 mL Inj IVPUSH PRN (20:15)
[2017-07-22] VITALS (9 sets, daily range): BP systolic 112–136; BP diastolic 68–86; PULSE 47–71; RESP 12–16; O2SAT 96–99
[2017-07-22] MEDS: Sodium Chloride LOK Flush 10 mL Syringe IVFLUSH SCH ×2 (00:30→08:55)
--- NOTE | 2017-07-22 02:23 | NUR ---
Groin Site/Tele Patient arrived to [facility] 2010 at 1950. Right groin site examined with [facility] nurse. Small hematoma noted with some bruising and gauze dressing saturated with sanguineous drainage. Dressing changed and area of hematoma marked. Sand bag applied and patient advised to continue bedrest. Frequent checks of groin site revealed continued oozing for another hour, until dressing was again saturated. Patient off bedrest at 2230 and stood at bedside to use urinal. Groin site stable, no new drainage noted and area of hematoma reduced from previously marked area. Dressing working loose due to saturation and movement; fresh dressing applied. Tele: sinus/chase with rates 50-60.
[2017-07-22 04:43] LABS: Mean Corpuscular Hemoglobin 32.5 pg (27.0-35.0); Mean Corpuscular Volume 92.4 fL (81-100)
[2017-07-22 04:46] LABS: INR 1.55 ratio
--- NOTE | 2017-07-22 05:15 | NUR ---
Groin Site Reassessment of patient's groin site reveals dressing once again saturated with sanguineous drainage. Patient admits getting out of bed twice without calling nurse. Groin site is soft and non-tender. Sand bag re-applied and patient advised not to get up or bend his leg. Frequent checks continue. Addendum: 07/22/17 at 0648 by SAV CABALLERO RN Dressing reinforced with second layer of gauze and tegaderm. No obvious new drainage. Sand bag in place.
--- NOTE | 2017-07-22 07:38 | PCM.PHAPRO ---
Progress Date of Service: Jul 22, 2017 Anticoagulation Date Jul 21-Jul 22-Jul INR 1.49 1.5 1.55 INR change 0.01 0.05 Warf Dose 10 MG 7.5 MG 10 MG Campbell Arroyo Jul 22, 2017 07:38
--- NOTE | 2017-07-22 08:35 | NUR ---
groin site Pt.'s groin site continues to drain, despite sand bag being in place. Dr. Vargas notified. Drsg. changed, sand bag bag in place. AM plavix dose discontinued per MD order. Pt. instructed to stay in bed and monitoring continued.
[2017-07-22] MEDS: buPROPion XL 300 mg ER24 Tablet PO SCH (08:55)
[2017-07-22] MEDS: Fluticasone-Salmererol 250-50 Inhaler INHALATION SCH (08:55)
[2017-07-22] MEDS: Gentamicin 0.3% 5 mL Ophthalmic Solution BOTH_EYES SCH ×2 (08:55→15:29)
[2017-07-22] MEDS: risperiDONE 1 mg Tablet PO SCH (08:55)
--- NOTE | 2017-07-22 09:30 | NUR ---
Pain/Tele Pt. reporting pain in his left later chest area, stating that "I believe this is hurting so much because of the position that I am in and because of this bed." Pain does not radiate, constant. notified. Will order po roxicodone. Tele reading Sinus chase, in the 50-60s. Care continues.
[2017-07-22] MEDS ORDERED: Lidocaine 1%-Epi 1:100,000 20 mL Inj ONE (10:54)
[2017-07-22] MEDS ORDERED: LOV80 SUBQ (15:06)
--- NOTE | 2017-07-22 15:27 | PCM.DIMED ---
Tyree Bolaños DO 07/22/17 1527: Discharge Instructions Date of Service Jul 22, 2017 Dates of Hospitalization Jul 20, 2017 at 04:44 Discharge Diagnosis Discharge Diagnosis Unstable angina Acute Hypotension Acute bradycardia History of factor V Leiden mutation, on warfarin History of asthma History of hypogonadism History of chronic pain History of anxiety/depression History of hyperlipidemia History of hypertension Medication Instructions Additional med instructions Please continue taking all medications as previously prescribed except for the following changes: We would like you to begin taking Lovenox 80 mg on 07/23 this will be a twice a day medication which is given through injection into the abdomen. You may do these injections herself or have them done by your . As discussed we will send you with a paper prescription, however not all pharmacies carry this medication, it would behoove you to call prior to arriving. Test Results Test Results No acute changes seen on chest x-ray or CT scan. Diet Discharge Diet: No restrictions Activity Discharge Activity: No restrictions Call your provider Call your provider for: Fever or Chills, Shortness of breath, Bleeding, Chest pain, Vomitting, Excessive diarrhea, Weakness (unilateral) Patient Instructions Patient Instructions Due to the bleeding site in your leg we would like to wait 24 hours before initiating anticoagulation with the Lovenox as described above. Apply a 4 x 4 pads to the wound as needed for continued oozing. We would like you to remain moderately inactive for the next 2-3 days to ensure complete healing of the wound. Continue all other medications as described above. Follow-up plan Please follow-up with your primary care doctor, Dr. Baker, as soon as possible after discharge from the hospital. We also like you to follow-up with her cooker operator closely especially due to ongoing bradycardia and hypotension. Follow-up Provider: OTHER,PHYSICIAN Follow-up with PCP in: 1 week Campbell Vargas MD 07/22/17 1815: Discharge Instructions Attending's Statement The patient was seen and examined together with Dr. Bolaños on 07/22/2017 and I agree with the history, exam and plan as outlined in the note above. . Tyree Bolaños DO Jul 22, 2017 15:27 Campbell Vargas MD Jul 22, 2017 18:15
--- NOTE | 2017-07-22 16:15 | NUR ---
discharge Pt. received discharge instructions. Prescription for Lovenox given. Pt. given instructions for self injections of Lovenox. Also given instructions on groin site wound care. Pt. verbalized understanding. Tele discontinued. 2 peripheral IV sites discontinued, intact. Spouse to take pt. home. Staff escorted pt. off the unit at 1630.
--- NOTE | 2017-07-22 16:51 | PCM.DC.MED ---
Discharge Summary Date of Service Jul 22, 2017 Dates of Hospitalization Date of Hospital Admission Jul 20, 2017 at 04:44 Date of Discharge: Jul 22, 2017 Providers: Admitting Physician: Yvan Taylor MD Primary Care Physician: Other,Physician Attending Physician: Campbell Vargas MD Diagnosis at Time of Discharge Diagnosis at Time of Discharge Unstable angina Acute Hypotension Acute bradycardia History of factor V Leiden mutation, on warfarin History of asthma History of hypogonadism History of chronic pain History of anxiety/depression History of hyperlipidemia History of hypertension Consultations Cardiology: Dr. Jimenez, Dr. Lilly Procedures XRay, CTs & MRIs X-RAY CHEST ONE VIEW, PORTABLE IMPRESSION: Bibasilar atelectasis versus aspiration or pneumonia. Correlate clinically. Dictated by: Vijay Emmanuel RRA Interpreted: Leonela Díaz MD on 07/20/2017 at 8:38 Approved by: Leonela Díaz MD, PhD on 07/20/2017 at 11:10 CT ANG CHEST/ABD W/WO CONTRAST IMPRESSION: 1. No evidence of aortic dissection or aortic aneurysm. 2. Atherosclerosis including 3 vessel coronary artery disease. 3. Small hiatal hernia. Dictated by: Leonela Díaz MD, PhD on 07/20/2017 at 9:19 Approved by: Leonela Díaz MD, PhD on 07/20/2017 at 9:27 Cardiac Echo Impression Echocardiogram Interpretation Summary 1) Normal left ventricular thickness, size, wall motion, and systolic function (EF 55-60%). 2) Normal right ventricular size and function. 3) No significant valvular abnormalities. 4) The aortic root is moderately dilated (diameter 4.7cm) and the ascending aorta is mildly enlarged (diameter 4.2cm). Consider repeat Echo in 6-12 months for serial monitoring. 5) No prior Echo available for comparison. Reading Physician:02:47 PM Invasive Procedures DIAGNOSTIC CARDIAC CATHETERIZATION FINDINGS: 1. LMCA: Intact. The left main coronary artery is a large long vessel with mild atherosclerotic plaquing. 2. LAD: Intact except for moderate atherosclerotic plaquing proximally (50% narrowing). The left anterior descending coronary artery is a moderate to large size transapical vessel with two substantial proximal diagonals from the region of moderate plaquing and calcification. 3. LCX: Intact with mild to moderate atherosclerotic plaquing. The left circumflex coronary artery distribution consists of a moderate to large size high OM. 4. RCA: 70% to 80% tubular mid RCA lesion. The right coronary artery is a large dominant vessel with heavy aortic plaquing superior to the heavy aortic calcific plaquing superior to the RCA ostium. The proximal RCA has diffuse intermediate narrowing of about 50%. The mid RCA in the region of calcification. The mid RCA has a tubular lesion that is angiographically significant--70% to 80% narrowed (including after NTG IC). There is a long stented segment from just before the acute margin to the distal RCA before the crux, there is moderate diffuse atherosclerotic plaquing but overall the stented segment looks widely patent. RPDA and RPLV are small. 5. FFR: FFR of 0.85 and iFR of 0.95 indicate the mid RCA lesion is not physiologically severe. 6. LHC: LVED 23 mmHg; and no systolic gradient on pullback across the aortic valve. RECOMMENDATIONS: 1. Comment: Catheterization was carried out to exclude the possibility of severe coronary disease given his atypical but worrisome clinical presentation even in the absence of other overt objective evidence of ischemia. The stents are intact from prior and the lesion of interest found is a mid RCA lesion. This lesion is angiographically significant but is not ischemia producing by FFR. Intervention is deferred. 2. Recommend ongoing evaluation for his hypotension, chronotropic incompetence; and other possible causes of his symptoms. 3. OMT--optimal guideline directed medical therapy for underlying CAD risk factors and for his underlying CAD. Bhupinder Lilly MD 07/21/17 2315 Other Diagnostics ONE DAY PHARMACOLOGICAL STRESS TEST IMPRESSION: 1. This is an abnormal myocardial perfusion study with evidence of a small- size infarction of the inferoapex without any reversible ischemia. 2. There is evidence of chronotropic incompetency. During exercise, the patient walked for about 7 minutes and 5 seconds on Jeremiah protocol, however, was only able to achieve 58% of target heart rate. As per his medication list, he is not on beta-blockers or calcium channel blockers. His blood pressure dropped during exercise. There were no obvious ischemic changes at that workload. There was no obvious ischemia seen on the perfusion scan. We will recommend cardiology evaluation for possible sick sinus syndrome and further evaluation. I discussed the findings with the hospitalist team. Dictated by: Pool Clements M.D. on 07/20/2017 at 15:06 Transcribed by: LAKISHA on 07/20/2017 at 20:56 Brief History 57-year-old male with past medical history of asthma, GERD with Olivier's esophagus, factor V Leiden mutation, ascending aortic aneurysm, peripheral neuropathy, stage II chronic kidney disease, fatty liver disease with history of alcoholism, previous DC with 6 stents placed over the period of 3-4 months back in 2003, presents with left-sided chest pain which radiates to the back. Patient stated that he was sitting at home with friends when his vision suddenly changed. Patient became dizzy and began to experience 6/10 left-sided chest pain radiating to the back. He checked his blood pressure shortly after this episode and it was 75/44. EMS was notified and the patient states that he took one dose of nitroglycerin prior to their arrival. Blood pressure noted by EMS to be 70/40. Patient was given another nitroglycerin and 324 mg aspirin in route. Patient was given morphine, atropine, nitroglycerin in the ED as well as 1 L of fluid for blood pressure support. Patient's blood pressure eventually increased without the need for pressors, heart rate decreased to high 40s low 50s and has remained at that level since admission. EKG shows no acute findings, serial troponins negative, Echo ordered, Patient was scheduled for stress test on . Patient started on a heparin drip and Plavix. Hospital Course 57-year-old male with past medical history of asthma, GERD, factor V Leiden mutation, previous DC with 6 stents placed over the period of 3-4 months back in 2003, presents with left-sided chest pain which radiates to the back. Unstable angina, present on arrival, active Patient complaining of left-sided chest pain which she describes as similar to his previous episodes Patient has a history of DC with stent placement in 2003, 2011 (total of 6 stents placed) - Serial troponins negative - Echo results as above - Stress test results inconclusive, see above - Continue aspirin - Cardiology consulted, cath on 07/21 results as above Acute Hypotension, present on arrival, active Patient received 1 L of fluid in the emergency department, pressures remaining low but stable at this time. - Continue fluids as neede - Hold nitroglycerin - Hold home antihypertensive medications Acute bradycardia, present on arrival, active - Atropine as needed for acute bradycardia History of factor V Leiden mutation, on warfarin - INR 1.5 on arrival - Continue Warfarin dosing per pharmacy History of asthma - Continue home asthma medications History of hypogonadism - Hold testosterone History of chronic pain - Hold home oxycodone History of anxiety/depression - Continue home medications for anxiety and depression History of hyperlipidemia - Continue atorvastatin History of hypertension - Hold home lisinopril, furosemide Exam Vital Signs (Last) Date Time Temp Pulse Resp B/P Pulse Ox O2 Delivery O2 Flow Rate FiO2 07/22/17 16:03 71 07/22/17 12:36 37.0 16 129/80 97 Room Air Exam General: No acute distress, well-developed, well-nourished Head: Normocephalic, atraumatic. External ears without defect. Eyes: Pupils equal, round, and reactive to light and accommodation. Anicteric sclerae, moist conjunctivae. Neck: Normal range of motion, no lymphadenopathy noted Cardiovascular: Regular rate and rhythm with no murmurs, rubs, or gallops appreciated Pulmonary: Clear to auscultation bilaterally with no crackles, wheezes, or rhonchi. Normal respiratory effort with no use of accessory muscles. Abdomen: Bowel tones present. Soft, nontender, nondistended. Extremities: No clubbing, cyanosis, edema Skin: Normal temperature, turgor, and texture; no rash, ulcers, or subcutaneous nodules appreciated. Neurological: Cranial nerves grossly intact. Reflexes, coordination, and sensory function within normal limits. Normal muscle strength, tone, and bulk. Psychiatric: Normal mood and affect. Alert and oriented to person, place, and time Test 07/19/17 10:27 07/20/17 04:50 07/20/17 14:32 07/21/17 06:45 Magnesium Level 1.8mg/dL (1.6-2.6) Total Bilirubin 0.2mg/dL (0.0-1.2) Aspartate Amino Transf (AST/SGOT) 15U/L (0-50) Alanine Aminotransferase (ALT/SGPT) 10U/L (0-44) Alkaline Phosphatase 54U/L (25-150) Total Protein 6.2g/dL (6.4-8.4) Albumin 4.0g/dL (3.4-5.0) Hold Pacheco Top Tube Received (Received) Hemoglobin A1c 5.8% (4.8-5.6) Thyroid Stimulating Hormone (TSH) 1.780uIU/mL (0.450-4.500) Total Creatine Kinase 217U/L (21-232) Creatine Kinase MB 2.9ng/mL (0.0-10.4) Creatine Kinase MB % % (0.0-5.0) Troponin T < 0.010ug/L (0.0-0.011) Neutrophils (%) (Auto) 50.7% (40-74) Lymphocytes (%) (Auto) 30.3% (14-46) Monocytes (%) (Auto) 13.3% (4-12) Eosinophils (%) (Auto) 4.9% (0-5) Basophils (%) (Auto) 0.5% (0-3) Triglycerides Level 113mg/dL (0-149) Cholesterol Level 232mg/dL (100-199) LDL Cholesterol, Calculated 137.400mg/dL (0-99) VLDL Cholesterol 22.600mg/dL HDL Cholesterol 72mg/dL (>39) Cholesterol/HDL Ratio 3.22 (0.0-4.4) Test 07/21/17 12:00 07/22/17 04:00 Activated Partial Thromboplast Time 52.9sec (22.8-33.0) White Blood Count 6.7th/mm3 (3.8-10.1) Red Blood Count 4.34mil/mm3 (4.40-5.80) Hemoglobin 14.1g/dL (13.8-17.2) Hematocrit 40.1% (41.0-50.0) Mean Corpuscular Volume 92.4fL (81-100) Mean Corpuscular Hemoglobin 32.5pg (27.0-35.0) Mean Corpuscular Hemoglobin Concent 35.2% (32.0-37.0) Red Cell Distribution Width 12.9% (12.3-15.4) Platelet Count 202bil/L (150-400) Prothrombin Time 16.7sec (8.1-12.5) Prothromb Time International Ratio 1.55ratio Sodium Level 137mEq/L (134-144) Potassium Level 4.1mEq/L (3.5-5.2) Chloride Level 102mEq/L (97-108) Carbon Dioxide Level 19mmol/L (18-29) Blood Urea Nitrogen 15mg/dL (6-24) Creatinine 0.84mg/dL (0.76-1.27) Estimat Glomerular Filtration Rate 100mL/min (>59) Glucose Level 91mg/dL (60-99) Calcium Level 8.4mg/dL (8.5-10.1) Discharge Medications Discharge Medications Atorvastatin Calcium (Atorvastatin Calcium) 20 Mg Tablet 20 MG PO HS (Reported) Bupropion ER (Bupropion ER) 300 Mg Tab.er.24h 300 MG PO DAILY (Reported) Dextroamphetamine/Amphetamine ER (Dextroamphetamine/Amphetamine ER) 30 Mg Capsule 60 MG PO DAILY (Reported) Enoxaparin (Lovenox) 80 Mg/0.8 Ml Syringe 80 MG SUBQ Q12 Prescribed by: TYREE GREENBERG DO Fluticasone/Salmeterol (Advair 250-50 Diskus) 60 Puff/Inh Disk 1 PUFF INH BID ( Reported) Furosemide (Furosemide) 20 Mg Tab 20 MG PO DAILY (Reported) Gabapentin (Gabapentin) 300 Mg Capsule 300 MG PO 1-2 X daily (Reported) Lisinopril (Lisinopril) 20 Mg Tablet 20 MG PO DAILY (Reported) Risperidone (Risperidone) 1 Mg Tablet 1 MG PO BID (Reported) Warfarin Sodium (Coumadin) 5 Mg Tablet 7.5 MG PO Mon, Wed, Fri (Reported) Warfarin Sodium (Warfarin Sodium) 10 Mg Tablet 10 MG PO Tu, Thr, Sat, Sun ( Reported) As needed Albuterol HFA (Proair HFA) 8.5 Gm Hfa.aer.ad 1-2 PUFFS INH Q4Hrs PRN PRN For Wheezing (Reported) Lorazepam (Ativan) 0.5 Mg Tablet 0.5 MG PO PRN For Anxiety (Reported) Nitroglycerin SL (Nitroglycerin SL) 0.4 Mg Tab.subl PRN For Chest Pain (Reported ) oxyCODONE (oxyCODONE) 10 Mg Tablet 10 MG PO Q4-6Hrs PRN PRN For Pain (Reported) Q4-Q6 Hours PRN Miscellaneous Medications Testosterone (Androgel) 75 Gm Gel..residential treatment counselor (Reported) Additional med instructions Please continue taking all medications as previously prescribed except for the following changes: We would like you to begin taking Lovenox 80 mg on 07/23 this will be a twice a day medication which is given through injection into the abdomen. You may do these injections herself or have them done by your . As discussed we will send you with a paper prescription, however not all pharmacies carry this medication, it would behoove you to call prior to arriving. Followup Plan Disposition: Home Follow-up plan Please follow-up with your primary care doctor, Dr. Baker, as soon as possible after discharge from the hospital. We also like you to follow-up with her gas regulator repairer helper closely especially due to ongoing bradycardia and hypotension. Discharge Diet: No restrictions Discharge Activity: No restrictions Patient Instructions Due to the bleeding site in your leg we would like to wait 24 hours before initiating anticoagulation with the Lovenox as described above. Apply a 4 x 4 pads to the wound as needed for continued oozing. We would like you to remain moderately inactive for the next 2-3 days to ensure complete healing of the wound. Continue all other medications as described above. Follow-up Provider: OTHER,PHYSICIAN Follow-up with PCP in: 1 week Time spent Greater than 30 minutes was spent in preparation of discharge with greater than 50% of that time dedicated to patient counseling and coordination of care. . Attending Statement The patient was seen and examined together with Dr. Greenberg on 07/22/2017 and I agree with the history, exam and plan as outlined in the note above. . Tyree Greenberg DO Jul 22, 2017 16:51 Campbell Vargas MD Jul 22, 2017 18:17
== END 2017-07-22 16:37 | disposition home or self-care (01) | DRG 251 ==
LOC: EDBD 22:07 → SED 22:07 → CCU 07-20 04:44 → UNDOADMOB 07-20 04:44 → PCC 07-20 04:44 → OBSVTOIN 07-20 04:44 → PCC 07-20 10:45
PROVIDERS: ADMIT Hospitalist; ATTEND Internal Medicine
PROC: 02703ZZ Dilation of Coronary Artery, One Artery, Percutaneous Approach (ICD-10-PCS; principal; 2017-07-21)
PROC: 4A023N7 Measurement of Cardiac Sampling and Pressure, Left Heart, Percutaneous Approach (ICD-10-PCS; 2017-07-21)
PROC: 4A033BC Measurement of Arterial Pressure, Coronary, Percutaneous Approach (ICD-10-PCS; 2017-07-21)
PROC: B2111ZZ Fluoroscopy of Multiple Coronary Arteries using Low Osmolar Contrast (ICD-10-PCS; 2017-07-21)
DX: I25.110 Atherosclerotic heart disease of native coronary artery with unstable angina pectoris (principal); D68.51 Activated protein C resistance; J45.909 Unspecified asthma, uncomplicated; G62.9 Polyneuropathy, unspecified; I12.9 Hypertensive chronic kidney disease with stage 1 through stage 4 chronic kidney disease, or unspecified chronic kidney disease; N18.2 Chronic kidney disease, stage 2 (mild); K21.9 Gastro-esophageal reflux disease without esophagitis; F41.8 Other specified anxiety disorders; F17.210 Nicotine dependence, cigarettes, uncomplicated; E29.1 Testicular hypofunction; J44.9 Chronic obstructive pulmonary disease, unspecified; Z79.51 Long term (current) use of inhaled steroids; Z79.01 Long term (current) use of anticoagulants; I25.2 Old myocardial infarction; Z95.5 Presence of coronary angioplasty implant and graft; Z82.49 Family history of ischemic heart disease and other diseases of the circulatory system